=== PATIENT | male | born 1940 | race Caucasian/White ===

== ENCOUNTER → 2016-11-16 | Outpatient (CLI) | payer OTHER ==
[~2016-11-16] MED LIST: ASPEC81 PO; CHOL100010 PO; CLX20 PO; CYAN500T PO; GLC850 PO; ROSU40TA PO; SITA50TA3 PO
[2016-11-16 17:54] LABS: BLOOD UREA NITROGEN 15 mg/dl (7-18); BUN/CREATININE RATIO 13.8 (10-20); CALCIUM 9.2 mg/dl (8.5-10.1); CARBON DIOXIDE 28 mmol/L (21-32); CHLORIDE 104 mmol/L (98-107); GLUCOSE 223 mg/dl (70-99); POTASSIUM 4.7 mmol/L (3.5-5.1); SODIUM 140 mmol/L (136-145)
[2016-11-16 18:05] LABS: RATIO 9.7 mcg/mg (0-30.0)
[2016-11-17 06:32] LABS: ESTIMATED AVERAGE GLUCOSE 177 mg/dl; HA1C FLAG Normal (Normal)
== END | disposition home or self-care (01) ==
LOC: C.LABPBG 15:36
PROVIDERS: ATTEND Nurse Practitioner Family
DX: E11.9 Type 2 diabetes mellitus without complications (principal)

== ENCOUNTER → 2017-05-09 | Outpatient (CLI) | payer OTHER ==
[2017-05-10 07:22] LABS: ESTIMATED AVERAGE GLUCOSE 177 mg/dl; HA1C FLAG Normal (Normal)
== END | disposition home or self-care (01) ==
LOC: C.LABPBG 12:53
PROVIDERS: ATTEND Nurse Practitioner Family
DX: E11.9 Type 2 diabetes mellitus without complications (principal)

== ENCOUNTER → 2017-11-22 | Outpatient (CLI) | payer OTHER ==
[2017-11-22 13:31] LABS: HEMOGLOBIN A1C 7.8 % (4.5-5.6)
== END | disposition home or self-care (01) ==
LOC: C.LABPBG 09:41
PROVIDERS: ATTEND Nurse Practitioner Family
DX: E11.9 Type 2 diabetes mellitus without complications (principal)

== ENCOUNTER → 2018-01-09 | Outpatient (CLI) | payer OTHER ==
--- NOTE | 2018-01-09 15:25 | DIAGNOSTIC IMAGING REPORT ---
LUMBAR SPINE AND PELVIS BONE SCAN WITH SPECT IMAGING HISTORY: Low back pain. TECHNIQUE: 3 hours following the intravenous administration of 26.5 mCi of technetium 99 M MDP, anterior, posterior, and oblique views of the lumbar spine and pelvis were performed. SPECT imaging of the lumbar spine and was also obtained. COMPARISON STUDY: Lumbar spine MRI 01/02/2018. Abdomen and pelvis CT 08/22/2015. FINDINGS: No abnormal radiotracer uptake seen within the pelvis. Mild radiotracer uptake seen along the anterior vertebral bodies of the lower thoracic spine. This correlates to the large anterior osteophytes. There is also radiotracer uptake associated with the large left anterior osteophytes at L1-L2. Small focus of radiotracer uptake seen within the left anterior aspect of the L1 superior endplate. This is nonspecific but could be due to degenerative change. IMPRESSION: 1. Radiotracer uptake associated with the largest left anterior osteophytes at L1-L2 and the small focus of edema within the anterior aspect of the L1 superior endplate. Therefore, this favors degenerative change. 2. No abnormal radiotracer uptake seen within the pelvis. 3. Additional areas of mild radiotracer uptake seen along the anterior aspect of the lower thoracic spine also associated with the anterior osteophytes. Electronically signed by: Ralph Ku M.D. 01/09/2018 3:24 PM Dictated Date/Time: 01/09/2018 3:15 PM
== END | disposition home or self-care (01) ==
LOC: C.NUCL 09:58
PROVIDERS: ATTEND Orthopaedic Surgery
DX: M54.5 Low back pain (principal)

== ENCOUNTER → 2018-01-30 | Day surgery (SDC) | payer OTHER ==
[2018-01-16 10:09] VITALS: Ht 177.8 cm; Wt 104.5 kg
[~2018-01-30] VITALS: Ht 177.8 cm; Wt 104.5 kg
[~2018-01-30] MED LIST changes: +ASPCH81X PO; -ASPEC81 PO; +BUPIVACAINE 0.25% 2.5MG/ML PF 10 ML VIAL ONE; +CHOL1000 PO; -CHOL100010 PO; -CLX20 PO; -CYAN500T PO; -GLC850 PO; +INSU1INJ33 SC; +IOPAMIDOL INJ 61% 15 ML VIAL ONE; +LIDOCAINE HCL 1% MPF 5 ML VIAL ONE; +LOSA1TAB PO; +NVLG SC; -ROSU40TA PO; +SERT25TA PO; -SITA50TA3 PO
--- NOTE | 2018-01-30 14:29 | History & Physical Bridge - [place] ---
H&P Re-Evaluation Bridge Note: I have examined the patient, reviewed the History & Physical and in the interval since the performance of the History & Physical I have noted the following changes of clinical significance: No changes noted
--- NOTE | 2018-01-30 14:46 | [facility] Post Operative Brief Note ---
Immediate Operative Summary Operative Date Jan 30, 2018. Pre-Operative Diagnosis Low back pain Post-Operative Diagnosis Low back pain Procedure(s) Performed Left Sacroiliac Joint Injection Surgeon Dr. Imani Biggs Puppy Sitter Surgeon(s) None Estimated Blood Loss 0 Findings Consistent with Post-Op Diagnosis Specimens NA Drains None Anesthesia Type Local Complication(s) none Disposition Disposition:
[2018-01-30 14:48] VITALS: TEMP 37.2
--- NOTE | 2018-01-30 14:48 | Discharge Instructions ---
Discharge Instructions Date of Service Jan 30, 2018. Visit Reason for Visit: Sacroiliitis Discharge Discharge Diagnosis / Problem: low back pain Discharge Goals Goal(s): Decrease discomfort, Improve function Medications Stopped Medications Name(s): aspirin 81mg daily, last dose 01/25/18 Activity Recommendations Activity Limitations: resume your previous activity Anesthesia . Post Anesthesia Instructions: If you have had General Anesthesia or IV Sedation: * Do not drive today. * Resume driving when surgeon permits. * Do not make important decisions or sign legal documents today. * Call surgeon for: 1. Temperature elevations greater than 101 degrees F. 2. Uncontrollable pain. 3. Excessive bleeding. 4. Persistent nausea and vomiting. 5. Medication intolerance (nausea, vomiting or rash). * For nausea and vomiting use only clear liquids such as: tea, soda, bouillon until nausea subsides, then gradually increase diet as tolerated. * If you have any concerns or questions, call your surgeon's office. If physician is unavailable and it is an emergency, call 911 or go to the nearest emergency room. . Diet Recommendations Recommended Home Diet: resume previous diet Procedures Procedures Performed: Left Sacroiliac Joint Injection Pending Studies Studies pending at discharge: no Medical Emergencies . Who to Call and When: Medical Emergencies: If at any time you feel your situation is an emergency, please call 911 immediately. . Non-Emergent Contact Non-Emergency issues call your: Specialist . . "Provider Documentation" section prepared by Bin Biggs. .
--- NOTE | 2018-01-30 15:11 | OPERATIVE REPORT ---
DATE OF OPERATION: 01/30/2018 PREOPERATIVE DIAGNOSIS: Left sacroiliitis. POSTOPERATIVE DIAGNOSIS: Same. PROCEDURE: Left sacroiliac joint injection under fluoroscopic guidance. INDICATIONS: The patient is a 77-year-old white male who presents with a 3-year history of low back pain. He has had multiple epidural injections that were ineffective. He has pain that he localizes to the lower sacral area on the left side, occasionally radiated into the thigh, but never below the knee and his symptoms were consistent with an SI etiology of his pain. PHYSICAL EXAMINATION: Pleasant male, who has difficulty getting up from a chair, moving localizing pain in the lower lumbosacral area. Nontender to palpation over the facets and muscular area. Tender to palpation over the left SI joint. Positive Yi maneuver. Negative sacral distraction maneuver. CONSENT: Verbal and written consent was obtained from the patient. Risks and benefits were reviewed. Risks include, but are not limited to abscess and allergic reaction. The patient wishes to proceed. DESCRIPTION OF PROCEDURE: The patient was taken back to the special procedures room of the [facility], where he was maintained in a prone position. Backside was cleansed with Betadine x3 and a dry sterile dressing was applied. Fluoroscope was used to identify the left SI joint. Overlying skin was anesthetized with 2.5 mL of lidocaine 1% with a 25-gauge 1-1/2 inch needle. A 25-gauge 3-1/2 inch spinal needle was then directed under fluoroscopic guidance into the SI joint. Isovue-300 contrast 0.25 mL demonstrated intraarticular uptake. He then underwent injection after negative aspiration of 40 mg of Depo-Medrol and 1.5 mL of bupivacaine 0.25%. Injection was well tolerated. DISPOSITION: 1. The patient was taken out into the discharge recovery area, where he will be discharged home once discharge criteria have been met. 2. Follow up in the [facility] office in 4 weeks' time. I attest to the content of the Intraoperative Record and any orders documented therein. Any exception s are noted below.
[2018-01-30 15:12] VITALS: BP 155/84; PULSE 66; O2SAT 99
== END | disposition home or self-care (01) ==
LOC: X.SURG 13:29
PROVIDERS: ATTEND Physical Medicine & Rehabilitation
DX: M46.1 Sacroiliitis, not elsewhere classified (principal); I10 Essential (primary) hypertension; E78.00 Pure hypercholesterolemia, unspecified; Z88.8 Allergy status to other drugs, medicaments and biological substances; Z88.2 Allergy status to sulfonamides; Z79.82 Long term (current) use of aspirin; Z79.899 Other long term (current) drug therapy; Z79.84 Long term (current) use of oral hypoglycemic drugs

== ENCOUNTER → 2018-03-19 | Outpatient (CLI) | payer OTHER ==
[~2018-03-19] MED LIST changes: -BUPIVACAINE 0.25% 2.5MG/ML PF 10 ML VIAL ONE; -IOPAMIDOL INJ 61% 15 ML VIAL ONE; -LIDOCAINE HCL 1% MPF 5 ML VIAL ONE
== END | disposition home or self-care (01) ==
LOC: C.RDSM 11:20
PROVIDERS: ATTEND Family Medicine
DX: M25.552 Pain in left hip (principal)

== ENCOUNTER → 2018-05-29 | Outpatient (CLI) | payer OTHER ==
[2018-05-29 17:21] LABS: BLOOD UREA NITROGEN 18 mg/dl (7-18); CALCIUM 8.8 mg/dl (8.5-10.1); CARBON DIOXIDE 28 mmol/L (21-32); CHOLESTEROL 161 mg/dl (0-200); GLUCOSE 110 mg/dl (70-99); LDL CHOLESTEROL CALCULATED 89 mg/dl; POTASSIUM 4.4 mmol/L (3.5-5.1); SODIUM 137 mmol/L (136-145)
[2018-05-30 05:54] LABS: HEMOGLOBIN A1C 7.4 % (4.5-5.6)
== END | disposition home or self-care (01) ==
LOC: C.LABPBG 12:25
PROVIDERS: ATTEND Nurse Practitioner Family
DX: E11.65 Type 2 diabetes mellitus with hyperglycemia (principal)

== ENCOUNTER 2023-02-09 17:08 | Inpatient (IN) ==
--- NOTE | 2023-02-09 17:13 | ED Triage Note ---
Date of Service February 09, 2023 History of Present Illness This patient was briefly evaluated while in triage. An abbreviated physical exam was performed. This patient is a 82-year-old Male who presents to the ED for evaluation of intermittent confusion, swelling in his leg, fatigue (sleeping 17 hours per d ay). 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 PCP referred to ED for stroke work-up. Symtpoms started last week. Physical Exam VITALS: Vitals are noted on the nurse's note and reviewed by myself. GENERAL: This is an 82 year old male, in no acute distress, nondiaphoretic, well-developed well-nourished. SKIN: No obvious rashes, edema, erythema HEAD: Normocephalic atraumatic. EYES: Conjunctivae without injection, sclerae without icterus. NECK: No JVD. LUNGS: No retractions or accessory muscle use. MUSCULOSKELETAL: Presents in a wheelchair. NEURO: Patient was alert and oriented to person place and time. No focal neurological deficits. Initial orders for labs and / or imaging were placed and patient was placed in the waiting area until a bed is available. Please see further documentation for the full ED course.
[2023-02-09 17:57] LABS: Basophils # (auto) 0.06 K/uL (0-0.2); Basophils % (auto) 0.6 %; Eosinophils # (auto) 0.06 K/uL (0-0.50); Eosinophils % (auto) 0.6 %; Hematocrit (blood only) 38.4 % (42.0-52.0); Hemoglobin 13.3 g/dl (14.0-18.0); Immature Granulocytes # (auto) 0.02 K/uL (0.01-0.20); Immature Granulocytes % (auto) 0.2 %; Lymphocytes # (auto) 1.38 K/uL (1.2-3.4); Lymphocytes % (auto) 13.7 %; Mean Corpuscular Hgb Conc 34.6 g/dL (32.0-36.0); Mean Corpuscular Volume 89.5 fL (80.0-100.0); Mean Platelet Volume 10.7 fL (9.4-12.4); Monocytes # (auto) 0.66 K/uL (0.11-0.59); Monocytes % (auto) 6.5 %; Neutrophils % (auto) 78.4 %; Platelet Count 193 K/uL (130-400); RDW Standard Deviation 42.2 fL (36.4-46.3); Red Blood Count 4.29 M/uL (4.70-6.10); White Blood Count 10.08 K/ul (4.8-10.8)
--- NOTE | 2023-02-09 18:08 | XRay Report ---
XR chest 1V not portable CLINICAL HISTORY: neuro deficit, fatigue COMPARISON STUDY: Chest radiograph December 03, 2022. FINDINGS: Left subclavian pacer is in place. There are median sternotomy wires. There is no pneumotho rax. Trace right pleural effusion is noted. Interstitial thickening and bilateral airspace opacities are greater within the right lung. These have developed since chest radiograph of December 03, 2022. C ardiomegaly is again noted. IMPRESSION: 1. Interval development of multifocal airspace opacities and interstitial thickening, greater within the right lung. The findings favor pneumonia. Asymmetric pulmonary edema could appear similar althoug h is considered less likely. Radiographic follow-up is recommended to ensure resolution. 2. Cardiomegaly. 3. Trace right pleural effusion. ACT 112: Negative or not required by law. Electronically signed by: Ricco Haynes M.D. 02/09/2023 6:07 PM
[2023-02-09 18:14] LABS: Alanine Aminotransferase 61 U/L (7-52); Albumin Globulin Ratio 0.9 (0.9-2); Albumin Level 3.4 gm/dl (3.4-5.0); Alkaline Phosphatase 150 U/L (34-104); Anion Gap 7 (3-11); Aspartate Aminotransferase 39 U/L (13-39); BUN Creatinine Ratio 13.7 (10-20); Bilirubin,Total 1.3 mg/dl (0.2-1.0); Blood Urea Nitrogen 13 mg/dl (6-23); Calcium 9.3 mg/dl (8.6-10.3); Carbon Dioxide 29 mmol/L (21-32); Chloride 94 mmol/L (98-107); Est GFR (African American) 85.5 ml/min; Est GFR (Non-African American) 73.7 ml/min; Globulin 3.8 gm/dl (2.5-4.0); Glucose 163 mg/dl (70-99(Fasting)); Magnesium 1.8 mg/dl (1.7-2.4); Sodium 130 mmol/L (136-145); Total Protein 7.2 gm/dl (6.0-8.3)
[2023-02-09 18:20] LABS: Troponin I High Sensitivity 20.9 pg/ml (0-20)
[2023-02-09 18:25] LABS: INR 1.2 (0.9-1.1); Partial Thromboplastin Ratio 1.3; Partial Thromboplastin Time 34.4 Seconds (21.0-31.0)
--- NOTE | 2023-02-09 19:03 | CT Scan Report ---
HEAD CT NONCONTRAST CT DOSE: 614.27 mGy.cm HISTORY: neuro deficit, weakness, confusion TECHNIQUE: Multiaxial CT images of the head were performed without the use of intravenous contrast. A utomated exposure control was utilized for this study. A dose lowering technique was utilized adheri ng to the principles of ALARA. Comparison: None. Findings: The paranasal sinuses and mastoid air cells are clear. 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 There is no mas s, hematoma, midline shift, or acute infarct identified. Left parietal craniotomy at the high convexi ty with a small focus of underlying encephalomalacia. No calvarial fractures identified. The ventricl es and sulci demonstrate mild age-related involutional changes. Periarticular white matter hypodensit y suggests mild microvascular ischemic change. Impression: 1. No acute intracranial abnormality. 2. Postoperative changes and old infarcts as described above. ACT 112: Negative or not required by law. Electronically signed by: Ralph Ku M.D. 02/09/2023 7:01 PM
--- NOTE | 2023-02-09 19:43 | Emergency Department Note ---
History of Present Illness General Chief complaint: Stroke/CVA Symptoms Stated complaint: REF BY DOC, CONFUSION, HEADACHE, WEAKNESS, Time Seen by Provider: 02/09/23 18:18 History of Present Illness Provider complaint: Weakness 82-year-old male presents emergency department for weakness. Daughter at bedside states that the patient has been getting increasingly weak over the last week. He reports increased leg swelling bilateral lower extremities. Patient reports headache and history of an AVM. Daughter states that the called her PCP who referred them to the emergency department to be evaluated given his constitution of symptoms. No fevers. No falls. No nausea vomiting or paz rrhea. No abdominal pain. Home Medications Medication Instructions Recorded Confirmed Type rosuvastatin 20 mg tablet (Crestor) 20 mg PO QPM 06/20/18 02/09/23 History cholecalciferol (vitamin D3) 25 1,000 unit PO QAM 07/04/18 02/09/23 History mcg (1,000 unit) tablet (Vitamin D3) Contour Test Strips (blood sugar #300 ea 12/28/19 01/09/22 Rx diagnostic) apixaban 5 mg tablet (Eliquis) 5 mg PO BID 02/09/23 02/09/23 History fluoxetine 40 mg capsule 40 mg PO QAM 02/09/23 02/09/23 History furosemide 20 mg tablet 20 mg PO 3XWK 02/09/23 02/09/23 History insulin degludec 100 unit/mL (3 20 unit subcut DAILY 02/09/23 02/09/23 History mL) subcutaneous pen (Tresiba FlexTouch U-100 insulin) metoprolol succinate 25 mg 25 mg PO QPM 02/09/23 02/09/23 History tablet,extended release 24 hr multivitamin 1 tab PO QAM 02/09/23 02/09/23 History semaglutide 0.25 mg or 0.5 mg (2 0.5 mg subcut WK 02/09/23 02/09/23 History mg/3 mL) subcutaneous pen injector (Ozempic) Allergies Allergy/AdvReac Type Severity Reaction Status Date / Time amoxicillin AdvReac Unknown SICK IN Verified 02/09/23 21:25 STOMACH clavulanic acid AdvReac Unknown SICK IN Verified 02/09/23 21:25 STOMACH clopidogrel AdvReac Unknown SICK IN Verified 02/09/23 21:25 STOMACH Past Med/Surg History Medical History Basal cell carcinoma "left ear, had surgery" CAD (coronary artery disease) "BMS to OM in 2002 CABG x1 in 2009 w/ aortic valve replacement" Cardiac murmur H/O severe s/p AVR 2009 Diabetes Dyslipidemia GERD (gastroesophageal reflux disease) History of anesthesia reaction WITH VALVE REPLACEMENT SLOW TO WAKE UP History of arteriovenous malformation (AVM) History of gout History of kidney stones History of myocardial infarction 2009 HTN (hypertension) Osteoarthritis Pacemaker OCT 2018 "PASSED OUT" - / FOLLOWS DR HAYWOOD - LAST CHECK ? Seizures 2011 - AFTER AVM SURGERY - NO SEIZURES Sleep apnea DOES NOT USE MACHINE Surgical History H/O aortic valve replacement H/O craniotomy "for AVM" 2011 History of heart valve replacement 2009 [facility] - AORTIC VALVE REPLACEMENT - PT REPORTS STENT WAS REMOVED DURING VALVE REPLACEMENT SURGERY History of hip surgery LEFT " PRP" History of lumbar surgery "nucleoplasty L4-L5" History of sinus surgery History of tonsillectomy and adenoidectomy Hx of cardiac cath 2009 [facility] ..DC..x1 STENT Hx of colonoscopy Hx of repair of rotator cuff RIGHT AND LEFT Hx of tonsillectomy Hx of tooth extraction Pacemaker S/P laparoscopic cholecystectomy (07/15/19) Laparoscopic Cholecystectomy with Cholangiogram Dr. Sutherland 07-15-19 Family History Sister Diabetes Mother Heart disease Hypertension Father Heart disease Social History Smoking Status: Unknown if ever smoked Cigarettes Per Day: 1ppd for 20 yrs; Second Hand Exposure: No; Hx Alcohol Use: Yes Alcohol type: wine and hard liquor Hx Substance Use: No Preferred Language: Hebrew Communication Ability: Effective Communication Ability Comment: NO HEARING AIDES. KNIK Visual Impairment: No Limitations Mechanical Technologist Required: No Beliefs That Will Affect Care: None Current Living Situation: Spouse current occupational status: retired Feels Safe at Home: Yes Assistive Devices: Cane, Glasses and Walker Physical Exam Vital Signs Vital Signs - 24 hr 02/09/23 17:10 02/09/23 19:08 02/09/23 19:11 Temperature 36.7 C Temperature Source Temporal Artery Scan Pulse Rate 69 Pulse Rate [Apical] 70 Pulse Rhythm [Apical] Regular Pulse Strength [Apical] Normal Respiratory Rate 18 24 Respiratory Effort / Characteristics Non-Labored Spontaneous Non-Labored Spontaneous Respiratory Depth Normal Normal Respiratory Pattern Regular Regular Blood Pressure 148/77 H Blood Pressure [Right Arm] 140/58 L Blood Pressure Mean 100 Blood Pressure Mean [Right Arm] 85 Blood Pressure Position [Right Arm] Sitting Pulse Oximetry 92 88 L 88 L Oxygen Delivery Method Room Air Room Air Nasal Cannula Oxygen Flow Rate 2 Sepsis Recent Fever Within 48 Hours No Sepsis New/Unexplained Change in Mental Status No Sepsis Action Taken by Nursing No Action Required Pulse Oximetry Post Tiitration 93 02/09/23 20:50 02/09/23 19:13 Temperature Temperature Source Pulse Rate 70 Pulse Rate [Apical] 75 Pulse Rhythm [Apical] Regular Pulse Strength [Apical] Normal Respiratory Rate 21 Respiratory Effort / Characteristics Non-Labored Spontaneous Respiratory Depth Normal Respiratory Pattern Regular Blood Pressure Blood Pressure [Right Arm] 115/69 Blood Pressure Mean Blood Pressure Mean [Right Arm] 84 Blood Pressure Position [Right Arm] Sitting Pulse Oximetry 95 Oxygen Delivery Method Nasal Cannula Oxygen Flow Rate 2 Sepsis Recent Fever Within 48 Hours Sepsis New/Unexplained Change in Mental Status Sepsis Action Taken by Nursing Pulse Oximetry Post Tiitration Physical Exam GENERAL: He is oriented to person, place, and time. He appears well-developed and well-nourished. He does not appear distressed. HENT: Exam performed. - Head: Normocephalic and atraumatic. - Right Ear: External ear normal. No mastoid erythema - Left Ear: External ear normal. No mastoid erythema EYES: Conjunctivae and EOM are normal. Right eye exhibits no discharge. Left eye exhibits no discharge. No scleral icterus. NECK: Normal range of motion. Neck supple. No JVD present. No spinous process tenderness present. CV: Normal rate, regular rhythm, heart murmur and intact distal pulses. 3+ pitting edema of the bilateral lower extremities. Palpable radial pulses bue. PULM/CHEST: Rhonchi bilaterally and inspiratory rales bilaterally. ABD: The abdomen is soft. Bowel sounds are normal. He has no distension. No mass is present. There is no tenderness. There is no rebound, no guarding, no Nicole's sign and no tenderness at McBurney's point. Rovsig negative. MUSC/SKEL: Normal range of motion. There is no tenderness or deformity. LYMPH: No cervical adenopathy. NEURO: Motor and sensation grossly intact. SKIN: Skin is warm and dry. He is not diaphoretic. PSYCH: He has a normal mood and affect. Behavior is normal. Judgment and thought content normal. Course Course 1817: The patient was evaluated in room C11. A complete history and physical exam was performed Administered Medications Insulin Aspart (Insulin Aspart Per Unit Charge) 0 units SC Q6 GUILLE Stop: 03/12/23 00:00 Last Admin: 02/10/23 00:12 Dose: Not Given Documented By: ENRIQUETA Miscellaneous (Patient's Height &/Or Weight Needed) 1 each N/A Q30M GIULLE Stop: 02/10/23 01:00 Last Admin: 02/10/23 00:12 Dose: Not Given Documented By: Admin: 02/10/23 00:11 Dose: Not Given Documented By: Admin: 02/10/23 00:11 Dose: Not Given Documented By: Admin: 02/09/23 23:24 Dose: 1 each Documented By: ENRIQUETA Discontinued Medications Azithromycin (Azithromycin 250 Mg Tab) 500 mg PO NOW ONE Stop: 02/09/23 20:32 Last Admin: 02/09/23 21:25 Dose: Not Given Documented By: JACE Furosemide (Furosemide 40 Mg/4 Ml Vial) 40 mg IV ONE ONE Stop: 02/09/23 20:32 Last Admin: 02/09/23 20:50 Dose: 40 mg Documented By: JACE Ceftriaxone Sodium 1,000 mg/ (Dextrose) 50 mls @ 100 mls/hr IV NOW STA Stop: 02/09/23 21:00 Last Infusion: 02/09/23 21:24 Dose: 0 mls/hr Documented By: Admin: 02/09/23 20:50 Dose: 100 mls/hr Documented By: JACE Azithromycin 500 mg/ Dextrose 255 mls @ 125 mls/hr IV ONE ONE Stop: 02/09/23 23:32 Last Admin: 02/09/23 22:11 Dose: 125 mls/hr Documented By: JACE Critical Care Time Critical Care Time: Yes Total Critical Care Time: 38 I have personally spent greater than 38 minutes of critical care time in the direct management of this patient. This includes bedside care, interpretation of diagnostic studies, and testing, discussion with consultants, patient, and family members, and other required patient management activities. This 38 minutes is in excess of all separately billable procedures. Medical Decision Making Laboratory Data Attestation: I reviewed the patient's lab results. 02/09/23 17:25 02/09/23 17:25 Lab Results 02/09/23 02/09/23 02/09/23 Range/Units 17:25 17:25 17:25 WBC 10.08 (4.8-10.8) K/ul RBC 4.29 L (4.70-6.10) M/uL Hgb 13.3 L (14.0-18.0) g/dl Hct 38.4 L (42.0-52.0) % MCV 89.5 (80.0-100.0) fL MCH 31.0 (25.0-34.0) pg MCHC 34.6 (32.0-36.0) g/dL RDW Std Deviation 42.2 (36.4-46.3) fL RDW Coeff of Lencho 13.0 (11.5-14.5) % Plt Count 193 (130-400) K/uL MPV 10.7 (9.4-12.4) fL Immature Gran % (Auto) 0.2 % Neut % (Auto) 78.4 % Lymph % (Auto) 13.7 % Dewey % (Auto) 6.5 % Eos % (Auto) 0.6 % Baso % (Auto) 0.6 % Neut # (Auto) 7.90 H (1.40-6.50) K/uL Lymph # (Auto) 1.38 (1.2-3.4) K/uL Dewey # (Auto) 0.66 H (0.11-0.59) K/uL Eos # (Auto) 0.06 (0-0.50) K/uL Baso # (Auto) 0.06 (0-0.2) K/uL Immature Gran # (Auto) 0.02 (0.01-0.20) K/uL PT 13.0 H (9.0-12.0) Seconds INR 1.2 H (0.9-1.1) APTT 34.4 H (21.0-31.0) Seconds PTT Ratio 1.3 VBG pH (7.36-7.41) VBG pCO2 (38-50) mmHg VBG pO2 mmHg VBG HCO3 mmol/L VBG O2 Saturation % VBG Base Excess mEq/L Sodium 130 L (136-145) mmol/L Potassium 4.0 (3.5-5.1) mmol/L Chloride 94 L (98-107) mmol/L Carbon Dioxide 29 (21-32) mmol/L Anion Gap 7 (3-11) BUN 13 (6-23) mg/dl Creatinine 0.95 (0.6-1.4) mg/dl Est Cr Clr Drug Dosing Not Reportable Est GFR ( Amer) 85.5 ml/min Est GFR (Non-Af Amer) 73.7 ml/min BUN/Creatinine Ratio 13.7 (10-20) Glucose 163 H (70-99(Fasting)) mg/dl Lactate (0.4-2.0) mmol/L Calcium 9.3 (8.6-10.3) mg/dl Magnesium 1.8 (1.7-2.4) mg/dl Total Bilirubin 1.3 H (0.2-1.0) mg/dl AST 39 (13-39) U/L ALT 61 H (7-52) U/L Alkaline Phosphatase 150 H (34-104) U/L Ammonia (18-72) umol/L Troponin I High Sens 20.9 H (0-20) pg/ml B-Natriuretic Peptide (0-100) pg/ml Total Protein 7.2 (6.0-8.3) gm/dl Albumin 3.4 (3.4-5.0) gm/dl Globulin 3.8 (2.5-4.0) gm/dl Albumin/Globulin Ratio 0.9 (0.9-2) SARS-CoV-2, RNA, NAAT (NEGATIVE) Blood Type Antibody Screen 02/09/23 02/09/23 02/09/23 Range/Units 17:26 19:10 19:55 WBC (4.8-10.8) K/ul RBC (4.70-6.10) M/uL Hgb (14.0-18.0) g/dl Hct (42.0-52.0) % MCV (80.0-100.0) fL MCH (25.0-34.0) pg MCHC (32.0-36.0) g/dL RDW Std Deviation (36.4-46.3) fL RDW Coeff of Lencho (11.5-14.5) % Plt Count (130-400) K/uL MPV (9.4-12.4) fL Immature Gran % (Auto) % Neut % (Auto) % Lymph % (Auto) % Dewey % (Auto) % Eos % (Auto) % Baso % (Auto) % Neut # (Auto) (1.40-6.50) K/uL Lymph # (Auto) (1.2-3.4) K/uL Dewey # (Auto) (0.11-0.59) K/uL Eos # (Auto) (0-0.50) K/uL Baso # (Auto) (0-0.2) K/uL Immature Gran # (Auto) (0.01-0.20) K/uL PT (9.0-12.0) Seconds INR (0.9-1.1) APTT (21.0-31.0) Seconds PTT Ratio VBG pH (7.36-7.41) VBG pCO2 (38-50) mmHg VBG pO2 mmHg VBG HCO3 mmol/L VBG O2 Saturation % VBG Base Excess mEq/L Sodium (136-145) mmol/L Potassium (3.5-5.1) mmol/L Chloride (98-107) mmol/L Carbon Dioxide (21-32) mmol/L Anion Gap (3-11) BUN (6-23) mg/dl Creatinine (0.6-1.4) mg/dl Est Cr Clr Drug Dosing Est GFR ( Amer) ml/min Est GFR (Non-Af Amer) ml/min BUN/Creatinine Ratio (10-20) Glucose (70-99(Fasting)) mg/dl Lactate 1.1 (0.4-2.0) mmol/L Calcium (8.6-10.3) mg/dl Magnesium (1.7-2.4) mg/dl Total Bilirubin (0.2-1.0) mg/dl AST (13-39) U/L ALT (7-52) U/L Alkaline Phosphatase (34-104) U/L Ammonia (18-72) umol/L Troponin I High Sens (0-20) pg/ml B-Natriuretic Peptide (0-100) pg/ml Total Protein (6.0-8.3) gm/dl Albumin (3.4-5.0) gm/dl Globulin (2.5-4.0) gm/dl Albumin/Globulin Ratio (0.9-2) SARS-CoV-2, RNA, NAAT NEGATIVE (NEGATIVE) Blood Type A Positive Antibody Screen NEGATIVE 02/09/23 02/09/23 02/09/23 Range/Units 19:55 19:55 19:55 WBC (4.8-10.8) K/ul RBC (4.70-6.10) M/uL Hgb (14.0-18.0) g/dl Hct (42.0-52.0) % MCV (80.0-100.0) fL MCH (25.0-34.0) pg MCHC (32.0-36.0) g/dL RDW Std Deviation (36.4-46.3) fL RDW Coeff of Lencho (11.5-14.5) % Plt Count (130-400) K/uL MPV (9.4-12.4) fL Immature Gran % (Auto) % Neut % (Auto) % Lymph % (Auto) % Dewey % (Auto) % Eos % (Auto) % Baso % (Auto) % Neut # (Auto) (1.40-6.50) K/uL Lymph # (Auto) (1.2-3.4) K/uL Dewey # (Auto) (0.11-0.59) K/uL Eos # (Auto) (0-0.50) K/uL Baso # (Auto) (0-0.2) K/uL Immature Gran # (Auto) (0.01-0.20) K/uL PT (9.0-12.0) Seconds INR (0.9-1.1) APTT (21.0-31.0) Seconds PTT Ratio VBG pH 7.42 H (7.36-7.41) VBG pCO2 50 (38-50) mmHg VBG pO2 25 mmHg VBG HCO3 32 mmol/L VBG O2 Saturation < 60.0 % VBG Base Excess 6.6 mEq/L Sodium (136-145) mmol/L Potassium (3.5-5.1) mmol/L Chloride (98-107) mmol/L Carbon Dioxide (21-32) mmol/L Anion Gap (3-11) BUN (6-23) mg/dl Creatinine (0.6-1.4) mg/dl Est Cr Clr Drug Dosing Est GFR ( Amer) ml/min Est GFR (Non-Af Amer) ml/min BUN/Creatinine Ratio (10-20) Glucose (70-99(Fasting)) mg/dl Lactate (0.4-2.0) mmol/L Calcium (8.6-10.3) mg/dl Magnesium (1.7-2.4) mg/dl Total Bilirubin (0.2-1.0) mg/dl AST (13-39) U/L ALT (7-52) U/L Alkaline Phosphatase (34-104) U/L Ammonia 32.0 (18-72) umol/L Troponin I High Sens (0-20) pg/ml B-Natriuretic Peptide 147 H (0-100) pg/ml Total Protein (6.0-8.3) gm/dl Albumin (3.4-5.0) gm/dl Globulin (2.5-4.0) gm/dl Albumin/Globulin Ratio (0.9-2) SARS-CoV-2, RNA, NAAT (NEGATIVE) Blood Type Antibody Screen Imaging Data Attestation: I personally reviewed and interpreted this imaging study as kenzie joseph: My Impression: CT head: No ICH Radiologist's Impression: Chest X-Ray 02/09/23 17:13 XR chest 1V not portable CLINICAL HISTORY: neuro deficit, fatigue COMPARISON STUDY: Chest radiograph December 03, 2022. FINDINGS: Left subclavian pacer is in place. There are median sternotomy wires. There is no pneumothorax. Trace right pleural effusion is noted. Interstitial thickening and bilateral airspace opacities are greater within the right lung. These have developed since chest radiograph of December 03, 2022. Cardiomegaly is again noted. IMPRESSION: 1. Interval development of multifocal airspace opacities and interstitial thickening, greater within the right lung. The findings favor pneumonia. Asymmetric pulmonary edema could appear similar although is considered less likely. Radiographic follow-up is recommended to ensure resolution. 2. Cardiomegaly. 3. Trace right pleural effusion. ACT 112: Negative or not required by law. Electronically signed by: Ricco Haynes M.D. 02/09/2023 6:[address] 02/09/23 17:[address] DOSE: 614.27 mGy.cm HISTORY: neuro deficit, weakness, confusion TECHNIQUE: Multiaxial CT images of the head were performed without the use of intravenous contrast. Automated exposure control was utilized for this study. A dose lowering technique was utilized adhering to the principles of ALARA. Comparison: None. Findings: The paranasal sinuses and mastoid air cells are clear. 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 There is no mass, hematoma, midline shift, or acute infarct identified. Left parietal craniotomy at the high convexity with a small focus of underlying encephalomalacia. No calvarial fractures identified. The ventricles and sulci demonstrate mild age-related involutional changes. Periarticular white matter hypodensity suggests mild microvascular ischemic c hange. Impression: 1. No acute intracranial abnormality. 2. Postoperative changes and old infarcts as described above. ACT 112: Negative or not required by law. Electronically signed by: Ralph Ku M.D. 02/09/2023 7:01 PM MDM Narrative Cardiac monitoring: An order was placed for continuous cardiac monitoring. The monitor shows a rate of 70 with paced rhythm interpreted by me Patient became hypoxic on room air. Supplemental oxygen was applied via nasal cannula which improved the patient's oxygen saturation. Labs are within normal limits normal white blood cell count normal hemoglobin level. VBG is within normal limits. Sodium is 130. Troponin is very slightly elevated at 20.9 BNP elevated at 147. Chest x-ray shows cardiomegaly and cephalization versus infiltrates. Patient will be started on antibiotics Rocephin and azithromycin. Lasix ordered for the patient. Dr. Taylor admit the patient. Impression & Plan Hypoxia, Pneumonia, CHF exacerbation Discharge Plan Visit Data Chief Complaint: Stroke/CVA Symptoms Stated Complaint: REF BY DOC, CONFUSION, HEADACHE, WEAKNESS, ED Provider: John Combs Discharge Problem: Hypoxia, Pneumonia, CHF exacerbation Patient Disposition: Admitted As Inpatient Discharge Instructions Interventions: ED Discharge Assessment Last Done: 02/09/23 22:38
[2023-02-09 20:19] LABS: Base Excess VBG 6.6 mEq/L; HCO3 VBG 32 mmol/L; Oxygen Saturation VBG < 60.0 %; PCO2 VBG 50 mmHg (38-50); PO2 VBG 25 mmHg; pH VBG 7.42 (7.36-7.41)
[2023-02-09] MEDS ORDERED: cefTRIAXone SODIUM 1,000 MG in DEXTROSE 5% AD-VAN 50 ML IV STA (20:31)
[2023-02-09] MEDS ORDERED: FUROSEMIDE 40 MG/4 ML VIAL IV ONE (20:31)
[2023-02-09] MEDS: AZITHROMYCIN 250 MG TAB PO ONE ×2 (20:50→21:25)
[2023-02-09] MEDS ORDERED: AZITHROMYCIN 500 MG in DEXTROSE 5% 250 ML IV ONE (21:30)
--- NOTE | 2023-02-09 22:20 | History & Physical Report ---
Date of Service February 09, 2023 Assessment & Plan (1) Acute respiratory failure with hypoxia: (2) CHF exacerbation: (3) Pneumonia: (4) Diabetes mellitus with insulin therapy: (5) Arthritis: (6) CAD (coronary artery disease): (7) Dyslipidemia: (8) GERD (gastroesophageal reflux disease): (9) Seizures: (10) H/O aortic valve replacement: Plan Acute respiratory failure with hypoxia/pneumonia/CHF exacerbation- Continue nasal cannula oxygen, titrate to keep pulse ox 92-94% Pneumonia- Question of possibility of aspiration He received ceftriaxone 1 g IV from the ED Cancel or azithromycin from the ED Admitted on cefepime 2 g IV every 12 hours and azithromycin 500 mg IV daily Albuterol HFA 2 puffs 4 times daily as needed May need a speech therapy evaluation, as he has not had any evaluation in the past CHF exacerbation/elevated troponin/CAD/hypertension/status post AVR- Given furosemide 40 mg IV in the ED, and will continue every morning Continue apixaban 5 mg p.o. twice daily, metoprolol succinate 25 mg every evening Follow serial BMP and magnesium levels He reportedly had a recent echocardiogram last week, that they were told was normal at [facility] Diabetes mellitus- Hold semaglutide and insulin degludec Placed on Accu-Cheks with NovoLog SSI Depression- Continue fluoxetine Cerebrovascular disease- CT head with old infarcts noted, with right frontotemporal old MCA distribution infarct with encephalomalacia Left parietal craniotomy with encephalomalacia Patient lives with his and daughter on [facility] in [place] History of Present Illness Chief Complaint: The patient is referred to the emergency department by outpatient physician due to increased confusion, headache, generalized weakness, increased bilateral lower extremity swelling, frontal headache, and worsening shortness of breath over the past 1 to 2 weeks Primary Care Provider: KENNEDI Dos Santos The patient is an 82-year-old male with a past medical history including gout, diabetes mellitus on insulin, CKD, hypertension, CAD, CHF, depression, hypertension, hyperlipidemia, cerebrovascular disease with history of CVA, s tatus post left parietal craniotomy, history of AVMs, history of kidney stones, VT in 2010, seizure disorder, sleep apnea status post AVR and status post pacemaker. The patient presents to the emergency department with symptoms as noted above, at the referral of his PCP and with his family, and daughter in attendance for support Allergies Allergy/AdvReac Type Severity Reaction Status Date / Time amoxicillin AdvReac Unknown SICK IN Verified 02/09/23 21:25 STOMACH clavulanic acid AdvReac Unknown SICK IN Verified 02/09/23 21:25 STOMACH clopidogrel AdvReac Unknown SICK IN Verified 02/09/23 21:25 STOMACH Home Medications Medication Instructions Recorded Confirmed Type rosuvastatin 20 mg tablet (Crestor) 20 mg PO QPM 06/20/18 02/09/23 History cholecalciferol (vitamin D3) 25 1,000 unit PO QAM 07/04/18 02/09/23 History mcg (1,000 unit) tablet (Vitamin D3) Contour Test Strips (blood sugar #300 ea 12/28/19 01/09/22 Rx diagnostic) apixaban 5 mg tablet (Eliquis) 5 mg PO BID 02/09/23 02/09/23 History fluoxetine 40 mg capsule 40 mg PO QAM 02/09/23 02/09/23 History furosemide 20 mg tablet 20 mg PO 3XWK 02/09/23 02/09/23 History insulin degludec 100 unit/mL (3 20 unit subcut DAILY 02/09/23 02/09/23 History mL) subcutaneous pen (Tresiba FlexTouch U-100 insulin) metoprolol succinate 25 mg 25 mg PO QPM 02/09/23 02/09/23 History tablet,extended release 24 hr multivitamin 1 tab PO QAM 02/09/23 02/09/23 History semaglutide 0.25 mg or 0.5 mg (2 0.5 mg subcut WK 02/09/23 02/09/23 History mg/3 mL) subcutaneous pen injector (Ozempic) Past Med/Surg History Medical History (Updated 02/10/23 @ 01:13 by Lincoln Castro MD) Basal cell carcinoma "left ear, had surgery" CAD (coronary artery disease) "BMS to OM in 2002 CABG x1 in 2009 w/ aortic valve replacement" Cardiac murmur H/O severe s/p AVR 2009 Diabetes Dyslipidemia GERD (gastroesophageal reflux disease) History of anesthesia reaction WITH VALVE REPLACEMENT SLOW TO WAKE UP History of arteriovenous malformation (AVM) History of gout History of kidney stones History of myocardial infarction 2009 HTN (hypertension) Osteoarthritis Pacemaker OCT 2018 "PASSED OUT" - / FOLLOWS DR HAYWOOD - LAST CHECK ? Seizures 2012 - AFTER AVM SURGERY - NO SEIZURES Sleep apnea DOES NOT USE MACHINE Surgical History (Updated 02/10/23 @ 01:13 by Lincoln Castro MD) H/O aortic valve replacement H/O craniotomy "for AVM" 2011 History of heart valve replacement 2009 [facility] - AORTIC VALVE REPLACEMENT - PT REPORTS STENT WAS REMOVED DURING VALVE REPLACEMENT SURGERY History of hip surgery LEFT " PRP" History of lumbar surgery "nucleoplasty L4-L5" History of sinus surgery History of tonsillectomy and adenoidectomy Hx of cardiac cath 2009 [facility] ..VT..x1 STENT Hx of colonoscopy Hx of repair of rotator cuff RIGHT AND LEFT Hx of tonsillectomy Hx of tooth extraction Pacemaker S/P laparoscopic cholecystectomy (07/15/19) Laparoscopic Cholecystectomy with Cholangiogram Dr. Sutherland 07-15-19 Family History Sister Diabetes Mother Heart disease Hypertension Father Heart disease Social History Smoking Status: Unknown if ever smoked Cigarettes Per Day: 1ppd for 20 yrs; Second Hand Exposure: No; Hx Alcohol Use: Yes Alcohol type: wine and hard liquor Hx Substance Use: No Preferred Language: Swedish Communication Ability: Effective Communication Ability Comment: NO HEARING AIDES. SITKA Visual Impairment: No Limitations Certified Lactation Educator Required: No Beliefs That Will Affect Care: None Current Living Situation: Spouse current occupational status: retired Feels Safe at Home: Yes Assistive Devices: Cane, Glasses and Walker Review of Systems Review of Systems: The patient's daughter and somewhat his , relate most of his symptoms, HPI and ROS. Principal concerns are that of increasing lower extremity edema, worsening shortness of breath and dyspnea on exertion, with increased confusion over the past few weeks, they can seem to come on relatively suddenly. The patient does report that he feels significantly better since the nasal cannula oxygen has been placed Physical Exam Physical Exam: The patient is awake, alert and oriented 3, well developed and well nourished, normocephalic and atraumatic, lying in bed and in no acute distress. HEENT--PERRL, EOMI, mucous membranes and oropharynx dry. Neck--supple. No JVD. No bruits. Thyroid normal, trachea midline, no adenopathy. Heart--normal S1 and S2. No murmurs, rubs or gallops. Lungs--crackles at the bases bilaterally. No respiratory distress, no accessory muscle use. Abdomen--normal bowel sounds and soft. Nontender. Nondistended, no hernias or masses, no organomegaly. Extremities--2+ bilateral pretibial pitting edema Dermatologic--normal skin turgor, normal color, no abnormal lymph nodes, no rash. Neurologic--cranial nerves II through XII grossly intact. Rheumatologic--normal range of motion. Psychiatric--normal affect. Results & Data Results & Data Vital Signs (Past 12 Hours) Vital Signs Temp Pulse Pulse Resp BP BP Pulse Ox 02/09/23 22:00 70 22 140/83 97 02/09/23 20:50 75 21 115/69 95 02/09/23 19:11 88 L 02/09/23 19:08 70 24 140/58 L 88 L 02/09/23 17:10 36.7 C 69 18 148/77 H 92 O2 Del Method O2 Flow Rate 02/09/23 22:00 Nasal Cannula 2 02/09/23 20:50 Nasal Cannula 2 02/09/23 19:11 Nasal Cannula 2 02/09/23 19:08 Room Air 02/09/23 17:10 Room Air Laboratory Results Laboratory Results WBC 10.08 K/ul (4.8-10.8) 02/09/23 17:25 RBC 4.29 M/uL (4.70-6.10) L 02/09/23 17:25 Hgb 13.3 g/dl (14.0-18.0) L 02/09/23 17:25 Hct 38.4 % (42.0-52.0) L 02/09/23 17:25 MCV 89.5 fL (80.0-100.0) 02/09/23 17:25 MCH 31.0 pg (25.0-34.0) 02/09/23 17:25 MCHC 34.6 g/dL (32.0-36.0) 02/09/23 17:25 RDW Std Deviation 42.2 fL (36.4-46.3) 02/09/23 17:25 RDW Coeff of Lencho 13.0 % (11.5-14.5) 02/09/23 17:25 Plt Count 193 K/uL (130-400) 02/09/23 17:25 MPV 10.7 fL (9.4-12.4) 02/09/23 17:25 Immature Gran % (Auto) 0.2 % 02/09/23 17:25 Neut % (Auto) 78.4 % 02/09/23 17:25 Lymph % (Auto) 13.7 % 02/09/23 17:25 [place] % (Auto) 6.5 % 02/09/23 17:25 Eos % (Auto) 0.6 % 02/09/23 17:25 Baso % (Auto) 0.6 % 02/09/23 17:25 Neut # (Auto) 7.90 K/uL (1.40-6.50) H 02/09/23 17:25 Lymph # (Auto) 1.38 K/uL (1.2-3.4) 02/09/23 17:25 [place] # (Auto) 0.66 K/uL (0.11-0.59) H 02/09/23 17:25 Eos # (Auto) 0.06 K/uL (0-0.50) 02/09/23 17:25 Baso # (Auto) 0.06 K/uL (0-0.2) 02/09/23 17:25 Immature Gran # (Auto) 0.02 K/uL (0.01-0.20) 02/09/23 17:25 PT 13.0 Seconds (9.0-12.0) H 02/09/23 17:25 INR 1.2 (0.9-1.1) H 02/09/23 17:25 APTT 34.4 Seconds (21.0-31.0) H 02/09/23 17:25 PTT Ratio 1.3 02/09/23 17:25 VBG pH 7.42 (7.36-7.41) H 02/09/23 19:55 VBG pCO2 50 mmHg (38-50) 02/09/23 19:55 VBG pO2 25 mmHg 02/09/23 19:55 VBG HCO3 32 mmol/L 02/09/23 19:55 VBG O2 Saturation < 60.0 % 02/09/23 19:55 VBG Base Excess 6.6 mEq/L 02/09/23 19:55 Sodium 130 mmol/L (136-145) L 02/09/23 17:25 Potassium 4.0 mmol/L (3.5-5.1) 02/09/23 17:25 Chloride 94 mmol/L (98-107) L 02/09/23 17:25 Carbon Dioxide 29 mmol/L (21-32) 02/09/23 17:25 Anion Gap 7 (3-11) 02/09/23 17:25 BUN 13 mg/dl (6-23) 02/09/23 17:25 Creatinine 0.95 mg/dl (0.6-1.4) 02/09/23 17:25 Est Cr Clr Drug Dosing Not Reportable 02/09/23 17:25 Est GFR ( Amer) 85.5 ml/min 02/09/23 17:25 Est GFR (Non-Af Amer) 73.7 ml/min 02/09/23 17:25 BUN/Creatinine Ratio 13.7 (10-20) 02/09/23 17:25 Glucose 163 mg/dl (70-99(Fasting)) H 02/09/23 17:25 POC Glucose 145 mg/dl (70-99) H 02/09/23 22:52 Lactate 1.1 mmol/L (0.4-2.0) 02/09/23 19:55 Calcium 9.3 mg/dl (8.6-10.3) 02/09/23 17:25 Magnesium 1.8 mg/dl (1.7-2.4) 02/09/23 17:25 Total Bilirubin 1.3 mg/dl (0.2-1.0) H 02/09/23 17:25 AST 39 U/L (13-39) 02/09/23 17:25 ALT 61 U/L (7-52) H 02/09/23 17:25 Alkaline Phosphatase 150 U/L (34-104) H 02/09/23 17:25 Ammonia 32.0 umol/L (18-72) 02/09/23 19:55 Troponin I High Sens 17.9 pg/ml (0-20) 02/09/23 23:07 B-Natriuretic Peptide 147 pg/ml (0-100) H 02/09/23 19:55 Total Protein 7.2 gm/dl (6.0-8.3) 02/09/23 17:25 Albumin 3.4 gm/dl (3.4-5.0) 02/09/23 17:25 Globulin 3.8 gm/dl (2.5-4.0) 02/09/23 17:25 Albumin/Globulin Ratio 0.9 (0.9-2) 02/09/23 17:25 SARS-CoV-2, RNA, NAAT NEGATIVE (NEGATIVE) 02/09/23 19:10 Blood Type A Positive 02/09/23 17:26 Antibody Screen NEGATIVE 02/09/23 17:26 Impressions Chest X-Ray 02/09/23 17:13 XR chest 1V not portable CLINICAL HISTORY: neuro deficit, fatigue COMPARISON STUDY: Chest radiograph December 03, 2022. FINDINGS: Left subclavian pacer is in place. There are median sternotomy wires. There is no pneumothorax. Trace right pleural effusion is noted. Interstitial thickening and bilateral airspace opacities are greater within the right lung. These have developed since chest radiograph of December 03, 2022. Cardiomegaly is again noted. IMPRESSION: 1. Interval development of multifocal airspace opacities and interstitial thickening, greater within the right lung. The findings favor pneumonia. Asymmetric pulmonary edema could appear similar although is considered less likely. Radiographic follow-up is recommended to ensure resolution. 2. Cardiomegaly. 3. Trace right pleural effusion. ACT 112: Negative or not required by law. Electronically signed by: Ricco Haynes M.D. 02/09/2023 6:[address] 02/09/23 17:[address] DOSE: 614.27 mGy.cm HISTORY: neuro deficit, weakness, confusion TECHNIQUE: Multiaxial CT images of the head were performed without the use of intravenous contrast. Automated exposure control was utilized for this study. A dose lowering technique was utilized adhering to the principles of ALARA. Comparison: None. Findings: The paranasal sinuses and mastoid air cells are clear. 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 There is no mass, hematoma, midline shift, or acute infarct identified. Left parietal craniotomy at the high convexity with a small focus of underlying encephalomalacia. No calvarial fractures identified. The ventricles and sulci demonstrate mild age-related involutional changes. Periarticular white matter hypodensity suggests mild microvascular ischemic change. Impression: 1. No acute intracranial abnormality. 2. Postoperative changes and old infarcts as described above. ACT 112: Negative or not required by law. Electronically signed by: Ralph Ku M.D. 02/09/2023 7:01 PM Code Status & VTE Plan Code Status Full code, as discussed with patient and family VTE Prophylaxis Plan VTE Prophylaxis will be ordered: Yes PG Care Time/CCT Total # of Minutes Spent Total Time Spent with Patient: Total time spent is greater than 50% in coordination of care (as documented) at patient's floor/unit and/or counseling patient: Coding Level of Care Code 84099 INT INP/OBS CARE 375MIN Diagnoses Acute respiratory failure with hypoxia J96.01 CHF exacerbation I50.9 Heart failure type: unspecified Pneumonia J18.9 Laterality: unspecified laterality Lung location: unspecified part of lung Pneumonia type: due to unspecified organism Diabetes mellitus with insulin therapy E11.9; Z79.4 Arthritis M19.90 CAD (coronary artery disease) I25.10 Dyslipidemia E78.5 GERD (gastroesophageal reflux disease) K21.9 Seizures R56.9 H/O aortic valve replacement Z95.2 (2) CHF exacerbation Heart failure type: unspecified Qualified Code(s): I50.9 - Heart failure, unspecified (3) Pneumonia Laterality: unspecified laterality Lung location: unspecified part of lung Pneumonia type: due to unspecified organism Qualified Code(s): J18.9 - Pneumonia, unspecified organism
[2023-02-09] MEDS ORDERED: GLUCAGON FOR INJ 1 MG VIAL SQ PRN (22:48)
[2023-02-09] MEDS ORDERED: DEXTROSE 50% 50 ML SYRINGE IV PRN (22:48)
[2023-02-09] MEDS ORDERED: GLUCOSE 40% GEL 15 GM TUBE PO PRN (22:48)
[2023-02-09] MEDS ORDERED: CARBOHYDRATES FOR HYPOGLYCEMIA PO PRN (22:48)
[2023-02-09] MEDS ORDERED: ACETAMINOPHEN 325 MG TAB PO PRN (22:48)
[2023-02-09] MEDS ORDERED: ONDANSETRON INJ 2 MG/ML 2 ML VIAL IV PRN (22:48)
[2023-02-09] MEDS ORDERED: GLUCOSE 10 TAB/TUBE PO PRN (22:48)
[2023-02-09] MEDS: Patient's HEIGHT &/or WEIGHT Needed SCH (23:24)
[2023-02-10] MEDS: Patient's HEIGHT &/or WEIGHT Needed SCH ×3 (00:11→01:05)
[2023-02-10] MEDS: INSULIN ASPART PER UNIT CHARGE SC SCH ×5 (00:12→20:05)
[2023-02-10] MEDS: CEFEPIME 2,000 MG in SYRINGE 0 ML IV SCH ×2 (06:10→18:35)
[2023-02-10 06:36] LABS: Basophils # (auto) 0.05 K/uL (0-0.2); Basophils % (auto) 0.7 %; Eosinophils # (auto) 0.12 K/uL (0-0.50); Eosinophils % (auto) 1.6 %; Hemoglobin 12.3 g/dl (14.0-18.0); Immature Granulocytes # (auto) 0.06 K/uL (0.01-0.20); Immature Granulocytes % (auto) 0.8 %; Lymphocytes # (auto) 1.27 K/uL (1.2-3.4); Lymphocytes % (auto) 17.1 %; Mean Corpuscular Hemoglobin 31.3 pg (25.0-34.0); Mean Corpuscular Hgb Conc 35.1 g/dL (32.0-36.0); Mean Corpuscular Volume 89.1 fL (80.0-100.0); Mean Platelet Volume 10.5 fL (9.4-12.4); Monocytes # (auto) 0.66 K/uL (0.11-0.59); Monocytes % (auto) 8.9 %; Neutrophils # (auto) 5.25 K/uL (1.40-6.50); Neutrophils % (auto) 70.9 %; Platelet Count 173 K/uL (130-400); RDW Coefficient of Variation 12.7 % (11.5-14.5); RDW Standard Deviation 41.7 fL (36.4-46.3); Red Blood Count 3.93 M/uL (4.70-6.10); White Blood Count 7.41 K/ul (4.8-10.8)
[2023-02-10 07:04] LABS: Albumin Globulin Ratio 0.9 (0.9-2); BUN Creatinine Ratio 13.5 (10-20); Creatinine Clr Calc Pharmacy 62.9 ml/min; Est GFR (African American) 76.6 ml/min; Est GFR (Non-African American) 66.1 ml/min; Globulin 3.2 gm/dl (2.5-4.0); Magnesium 1.8 mg/dl (1.7-2.4); Total Protein 6.2 gm/dl (6.0-8.3)
--- NOTE | 2023-02-10 07:36 | Electrocardiogram Report ---
Test Reason : Blood Pressure : / mmHG Vent. Rate : 070 BPM Atrial Rate : 082 BPM P-R Int : 000 ms QRS Dur : 178 ms QT Int : 464 ms P-R-T Axes : 000 -56 062 degrees QTc Int : 501 ms Atrial flutter Ventricular-paced rhythm Abnormal ECG When compared with ECG of 03-DEC-2022 22:46, Vent. rate has decreased BY 6 BPM Confirmed by Ori Moore ([id number]) on 02/10/2023 7:35:53 AM Referred By: Iona Morris Confirmed By:Peterson Moore
[2023-02-10 09:35] LABS: Estimated Average Glucose 217 mg/dl; Hemoglobin A1C 9.2 % (4.5-5.6)
[2023-02-10] MEDS: TAMSULOSIN HCL 0.4 MG CAP PO SCH (09:36)
[2023-02-10] MEDS: SERTRALINE HCL 50 MG TABLET PO SCH (09:37)
[2023-02-10] MEDS: MULTIVITAMIN TAB PO SCH (09:37)
[2023-02-10] MEDS: CHOLECALCIFEROL 1,000 UNITS 25 MCG TAB PO SCH (09:37)
[2023-02-10] MEDS: FUROSEMIDE 40 MG/4 ML VIAL IV SCH (10:00)
[2023-02-10] MEDS: AZITHROMYCIN 500 MG in DEXTROSE 5% 250 ML IV SCH (10:03)
[2023-02-10] MEDS ORDERED: Nursing to Pharmacy Communication SCH (10:15)
[2023-02-10] MEDS: LORATADINE 10 MG TAB PO SCH (11:18)
[2023-02-10 15:17] LABS: Appearance Urine Clear (Clear); Bilirubin Urine Negative (Negative); Blood Urine Negative (Negative); Color Urine Yellow; Glucose Urine UA Negative (Negative); Ketones Urine Negative (Negative); Leukocyte Esterase Urine Negative (Negative); Nitrite Urine Negative (Negative); Protein Urine Negative (Negative); Specific Gravity Urine 1.006 (1.000-1.030); Urobilinogen Urine Negative (Negative)
--- NOTE | 2023-02-10 18:29 | Hospitalist Progress Note ---
Date of Service February 10, 2023 Assessment & Plan (1) Acute respiratory failure with hypoxia: Plan: A-cute respiratory failure with hypoxia Continue nasal cannula oxygen, titrate to keep pulse ox 92-94% - etiology thought to be 2/2 PNA and/or CHF exacerbation Pneumonia- CXR appearance consistent with PNA, however WBC and procal both normal; patient afebrile since admission. Blood cultures showing no growth to date. Question of possibility of aspiration on admission -- however speech eval today was normal. Community acquired PNA most likely source Admitted on cefepime 2 g IV every 12 hours and azithromycin 500 mg IV daily -- however if patient continues to demonstrate clinical improvement will trial off abx and see if stabilizes on lasix alone Albuterol HFA 2 puffs 4 times daily as needed CHF exacerbation - patient follows with Dr. Reddy at [facility] -- had echo last week and EF was apparently 55% - BNP elevated to 147 on admission; small pleural effusion noted on CXR - Given furosemide 40 mg IV in the ED, and will continue every morning; not on any home lasix CAD/s/p TAVR - Continue apixaban 5 mg p.o. twice daily, metoprolol succinate 25 mg every evening - Follow serial BMP and magnesium levels Elevated trop on admission - denies chest pain - EKG without acute ST segment changes - likley demand supply mismatch Diabetes mellitus- - uncontrolled, A1c at 9.2 - patient's home regimen consistent of Tresiba 30 units daily and Ozempic 0.5mg weekly. Patient's grandfather Tere administers his insulin each day to him, so compliance is not in question - He was never titrated up on his Ozempic dose --> recommend this be done upon discharge. Also will likely increase insulin dose given how deranged A1c is - Hold semaglutide and insulin degludec - Placed on Accu-Cheks with NovoLog SSI Depression- Continue fluoxetine Cerebrovascular disease- CT head with old infarcts noted, with right frontotemporal old MCA distribution infarct with encephalomalacia Left parietal craniotomy with encephalomalacia Dispo: Med tele; PT OT consults placed (2) CHF exacerbation: (3) Pneumonia: (4) Diabetes mellitus with insulin therapy: (5) Arthritis: (6) CAD (coronary artery disease): (7) Dyslipidemia: (8) GERD (gastroesophageal reflux disease): (9) Seizures: (10) H/O aortic valve replacement: Admission and Anticipated Discharge Date Admission Date: February 09, 2023 Subjective Patient states he is feeling improved from admission Review of Systems Review of Systems: All systems reviewed & are unremarkable except as noted in HPI & below Physical Exam Constitutional: WD/WN, vitals as above Eyes: + anicteric sclerae ENMT: external ear and nose normal, oropharynx normal Neck: trachea midline, no thyromegaly Respiratory: normal respiratory effort; no respiratory distress Auscultation: + rhonchi and + wheezes Cardiovascular: RRR, no murmur, no edema Heart Sounds: normal S1 and normal S2 Extremities: + pedal edema Gastrointestinal (Abdomen): normal bowel sounds, soft, nontender, no hepatosplenomegaly Musculoskeletal: Head/Neck/Chest: normocephalic and head atraumatic Skin: no rashes, warm and dry Neurologic: moves all extremities Psychiatric: A+Ox3, euthymic affect Results & Data Results & Data Vital Signs (Past 12 Hours) Vital Signs Temp Pulse Pulse Resp BP Pulse Ox O2 Del Method 02/10/23 16:52 36.9 C 70 30 H 105/63 94 Room Air 02/10/23 15:49 74 02/10/23 07:45 Room Air 02/10/23 11:42 37.0 C 70 24 106/63 91 Room Air 02/10/23 07:46 37.0 C 70 31 H 137/65 90 Room Air 02/10/23 07:13 70 PG Care Time/CCT Total # of Minutes Spent Total Time Spent with Patient: Total time spent is greater than 50% in coordination of care (as documented) at patient's floor/unit and/or counseling patient: Coding [place] [address] SUB INP/OBS CARE 2/35MIN Patient Type Established Diagnoses Acute respiratory failure with hypoxia J96.01 CHF exacerbation I50.9 Heart failure type: unspecified Pneumonia J18.9 Laterality: unspecified laterality Lung location: unspecified part of lung Pneumonia type: due to unspecified organism Diabetes mellitus with insulin therapy E11.9; Z79.4 Arthritis M19.90 CAD (coronary artery disease) I25.10 Dyslipidemia E78.5 GERD (gastroesophageal reflux disease) K21.9 Seizures R56.9 H/O aortic valve replacement Z95.2 (2) CHF exacerbation Heart failure type: unspecified Qualified Code(s): I50.9 - Heart failure, unspecified (3) Pneumonia Laterality: unspecified laterality Lung location: unspecified part of lung Pneumonia type: due to unspecified organism Qualified Code(s): J18.9 - Pneumonia, unspecified organism
[2023-02-10] MEDS ORDERED: ASPIRIN 81 MG ECTAB PO SCH (21:00)
[2023-02-10] MEDS ORDERED: ROSUVASTATIN CALCIUM 20 MG TAB PO SCH (21:00)
[2023-02-10] MEDS ORDERED: METOPROLOL SUCC 25MG EXT REL TAB PO SCH (21:00)
[2023-02-11] MEDS: CEFEPIME 2,000 MG in SYRINGE 0 ML IV SCH (06:10)
[2023-02-11 07:21] LABS: Basophils # (auto) 0.05 K/uL (0-0.2); Basophils % (auto) 0.6 %; Eosinophils # (auto) 0.23 K/uL (0-0.50); Eosinophils % (auto) 2.8 %; Hematocrit (blood only) 33.4 % (42.0-52.0); Hemoglobin 11.8 g/dl (14.0-18.0); Immature Granulocytes # (auto) 0.07 K/uL (0.01-0.20); Immature Granulocytes % (auto) 0.8 %; Lymphocytes # (auto) 1.94 K/uL (1.2-3.4); Lymphocytes % (auto) 23.5 %; Mean Corpuscular Hemoglobin 31.1 pg (25.0-34.0); Mean Corpuscular Hgb Conc 35.3 g/dL (32.0-36.0); Mean Corpuscular Volume 88.1 fL (80.0-100.0); Monocytes # (auto) 0.77 K/uL (0.11-0.59); Monocytes % (auto) 9.3 %; Neutrophils # (auto) 5.19 K/uL (1.40-6.50); Platelet Count 179 K/uL (130-400); RDW Standard Deviation 41.1 fL (36.4-46.3); Red Blood Count 3.79 M/uL (4.70-6.10); White Blood Count 8.25 K/ul (4.8-10.8)
[2023-02-11 07:33] LABS: Albumin Globulin Ratio 0.9 (0.9-2); Albumin Level 2.8 gm/dl (3.4-5.0); BUN Creatinine Ratio 14.8 (10-20); Bilirubin,Total 0.8 mg/dl (0.2-1.0); Calcium 9.1 mg/dl (8.6-10.3); Creatinine Clr Calc Pharmacy 60.7 ml/min; Est GFR (African American) 73.2 ml/min; Est GFR (Non-African American) 63.1 ml/min; Globulin 3.1 gm/dl (2.5-4.0); Magnesium 1.8 mg/dl (1.7-2.4); Potassium 4.1 mmol/L (3.5-5.1); Total Protein 5.9 gm/dl (6.0-8.3)
[2023-02-11] MEDS: INSULIN ASPART PER UNIT CHARGE SC SCH ×2 (08:00→12:30)
[2023-02-11] MEDS: SERTRALINE HCL 50 MG TABLET PO SCH ×2 (08:20→11:07)
[2023-02-11] MEDS: MULTIVITAMIN TAB PO SCH (08:20)
[2023-02-11] MEDS: TAMSULOSIN HCL 0.4 MG CAP PO SCH ×2 (08:20→11:07)
[2023-02-11] MEDS: CHOLECALCIFEROL 1,000 UNITS 25 MCG TAB PO SCH (08:20)
[2023-02-11] MEDS: FUROSEMIDE 40 MG/4 ML VIAL IV SCH (08:21)
[2023-02-11] MEDS: AZITHROMYCIN 500 MG in DEXTROSE 5% 250 ML IV SCH (08:21)
[2023-02-11] MEDS ORDERED: LANTUS PER UNIT CHARGE SQ SCH (09:00)
[2023-02-11] MEDS: LORATADINE 10 MG TAB PO SCH (09:44)
[2023-02-11] MEDS ORDERED: FLUoxetine HCL 20 MG CAP PO SCH (11:15)
[2023-02-11] MEDS ORDERED: APIXABAN 5 MG TABLET PO SCH (21:00)
--- NOTE | 2023-02-11 21:18 | Discharge Summary ---
Date of Service February 11, 2023 Admission HPI Per Admitting Provider The patient is an 82-year-old male with a past medical history including gout, diabetes mellitus on insulin, CKD, hypertension, CAD, CHF, depression, hypertension, hyperlipidemia, cerebrovascular disease with history of CVA, status post left parietal craniotomy, history of AVMs, history of kidney stones, DE in 2010, seizure disorder, sleep apnea status post AVR and status post pacemaker. The patient presents to the emergency department with symptoms as noted above, at the referral of his PCP and with his family, and daughter in attendance for support Admission Exam Per Admitting Provider The patient is awake, alert and oriented 3, well developed and well nourished, normocephalic and atraumatic, lying in bed and in no acute distress. HEENT--PERRL, EOMI, mucous membranes and oropharynx dry. Neck--supple. No JVD. No bruits. Thyroid normal, trachea midline, no adenopathy. Heart--normal S1 and S2. No murmurs, rubs or gallops. Lungs--crackles at the bases bilaterally. No respiratory distress, no accessory muscle use. Abdomen--normal bowel sounds and soft. Nontender. Nondistended, no hernias or masses, no organomegaly. Extremities--2+ bilateral pretibial pitting edema Dermatologic--normal skin turgor, normal color, no abnormal lymph nodes, no rash. Neurologic--cranial nerves II through XII grossly intact. Rheumatologic--normal range of motion. Psychiatric--normal affect. Principal Diagnosis Pneumonia + Diastolic CHF exacerbation Discharge Exam Constitutional WD/WN, vitals as above + obese Eyes + anicteric sclerae ENMT external ear and nose normal, oropharynx normal Neck trachea midline, no thyromegaly Respiratory normal respiratory effort; no respiratory distress and no cough Auscultation: + wheezes (right middle lobe) Cardiovascular RRR, no murmur, no edema Musculoskeletal Head/Neck/Chest: normocephalic and head atraumatic Skin no rashes, warm and dry Neurologic moves all extremities Psychiatric A+Ox3, euthymic affect Discharge Data Allergies Allergy/AdvReac Type Severity Reaction Status Date / Time amoxicillin AdvReac Unknown SICK IN Verified 02/09/23 21:25 STOMACH clavulanic acid AdvReac Unknown SICK IN Verified 02/09/23 21:25 STOMACH clopidogrel AdvReac Unknown SICK IN Verified 02/09/23 21:25 STOMACH Consultations 02/09/23 20:31 ED Decision to Admit Stat Ordered Studies 02/09/23 17:13 CT head/brain wo con Stat Diabetes Follow up Diabetes Follow-up Needed for HgbA1c >9% Hospital Course (1) Acute respiratory failure with hypoxia: Acute respiratory failure with hypoxia - etiology thought to be 2/2 PNA and/or CHF exacerbation Pneumonia- CXR appearance consistent with PNA, however WBC and procal both normal; patient afebrile since admission. Blood cultures showing no growth to date. Question of possibility of aspiration on admission -- however speech eval was normal. Community acquired PNA most likely source Admitted on cefepime 2 g IV every 12 hours and azithromycin 500 mg IV daily (completed 3 day course) Albuterol HFA 2 puffs 4 times daily as needed He was discharged on PO cefdinir 300mg BID to complete a 7 day course, as I do not suspect pseudomonal coverage is necessary. CHF exacerbation - patient follows with Dr. Reddy at [facility] -- had echo last week and EF was apparently 55% - BNP elevated to 147 on admission; small pleural effusion noted on CXR - patient's family had reported weight gain in days leading up to discharge - home lasix dose was 20mg MWF - Given three doses of furosemide 40 mg IV without appreciate bump in renal function, suggestive that higher dose of home lasix may be necessary Fortunately, patient has a pre-arranged follow up with Dr. Reddy's office on 02/12/23 at which time adjustment to his home direutic regimen can be discussed. CAD/s/p TAVR - Continue apixaban 5 mg p.o. twice daily, metoprolol succinate 25 mg every evening - Follow serial BMP and magnesium levels Elevated trop on admission - denies chest pain - EKG without acute ST segment changes - babs demand supply mismatch Diabetes mellitus- - uncontrolled, A1c at 9.2 - patient's home regimen consistent of Tresiba 20 units daily and Ozempic 0.5mg weekly. Patient's granddaughter Tere administers his insulin each day to him, so compliance is not in question - He was placed on ozempic 0.5mg daily many months ago and never titrated up on his dose --> recommend this be done at PCP follow up visit (arranged for 02/15/23) - Given how deranged A1c is -- advised he increase his tresiba dose to 30 units daily Depression- Continue fluoxetine Cerebrovascular disease- CT head with old infarcts noted, with right frontotemporal old MCA distribution infarct with encephalomalacia Left parietal craniotomy with encephalomalacia He was sent home with home health and PT (2) CHF exacerbation: (3) Pneumonia: (4) Diabetes mellitus with insulin therapy: (5) Arthritis: (6) CAD (coronary artery disease): (7) Dyslipidemia: (8) GERD (gastroesophageal reflux disease): (9) Seizures: (10) H/O aortic valve replacement: Total Time Total Time Spent Total Time Spent (In Minutes): 38 Total Time Includes: Examination of the Patient, Discharge Planning and Medication Reconciliation Discharge Plan Discharge Items Patient Disposition: Home - Self-Care Reason For Visit: NSTEMI, PNEUMONIA Discharge Diagnosis: Pneumonia, acute diastolic congestive heart failure Activity: Resume your previous activity Non-emergency contact: Primary Care Provider and Embryology Professor Call non-emergency contact if: you have any medication questions and your symptoms worsen Follow-up/Referrals: Iona Morris CRNP [Primary Care Provider] - Diet: Carb Consistent or DM2 Addtl Attending Provider Instructions: You were hospitalized at [facility] for shortness of breath, generalized weakness, and lower extremity swelling. On admission, a chest xray showed findings concerning for a pneumonia. Additionally, it appears as though some fluid backed up from the heart into the lungs. You were treated with IV antibiotics as well as diuretics (ie water pills) to help remove the the fluid from the lungs. You clinically improved while under our care. You were evaluated by physical therapy prior to your discharge and they recommended ongoing home health with physical therapy services. These services were arranged prior to your discharge. Please continue to take the following antibiotic to complete treatment of your suspected pneumonia: Cefdinir 300mg, twice daily for 4 days. A script was sent to your pharmacy. As for your water pill --> please take lasix 20mg tomorrow morning. Fortunately you have an appointment with your accounting machine mechanic on Sunday02/12/23 -- they can provide you additional directions on diuretic dosing moving forward. While you were in the hospital, your blood sugar was elevated. Please increase your Tresiba insulin dose form 20 units daily to 30 units daily moving forward. You also have a follow up visit scheduled with you PCP this coming week, at which time you should review your diabetic medication regimen. Pending Studies at Discharge: No Stand-Alone Forms: [facility], Smoking Cessation Medications and DC Order Prescriptions: New cefdinir 300 mg Capsule 300 mg PO BID 4 Days Qty: 8 0RF Continued (DME) Contour Test Strips Strip See Rx Instructions .ROUTE .MEDSUPPLY Qty: 300 0RF Rx Instructions: test 3 x daily rosuvastatin [Crestor] 20 mg Tablet 20 mg PO QPM cholecalciferol (vitamin D3) [Vitamin D3] 1,000 unit Tablet 1,000 unit PO QAM fluoxetine 40 mg capsule 40 mg PO QAM Eliquis 5 mg tablet 5 mg PO BID furosemide 20 mg tablet 20 mg PO [id number] Rx Instructions: TAKE THIS MED EVERY SUN/WED/SUN IN THE AM metoprolol succinate 25 mg tablet extended release 24 hr 25 mg PO QPM multivitamin Tablet 1 tab PO QAM Ozempic 0.25 mg or 0.5 mg (2 mg/3 mL) Pen Injector 0.5 mg SUBCUT WK Rx Instructions: TAKE THIS MED EVERY SUNDAY Changed insulin degludec [Tresiba FlexTouch U-100] 100 unit/mL (3 mL) insulin pen 30 unit SUBCUT DAILY 30 Days Qty: 0 0RF Rx Instructions: TAKE THIS MED DAILY AT 6PM Discharge Orders: Discharge Order (Routine); Ordered 02/11/23 Ordered By: Fernanda Hawkins/Other Patient Handouts: Managing Type 2 Diabetes Admission Data Admit Date/Time: 02/09/23 21:27 Attending Provider: Fernanda Dyson Admit Provider: Lincoln Castro Primary Care Provider: Iona Morris Other Providers: Lincoln Castro Other Interventions: Discharge Summary Assessment (RN) Last Done: 02/11/23 15:34 Coding Level of Care Code 44005 INP/OBS DISCH >30 MIN Diagnoses Acute respiratory failure with hypoxia J96.01 CHF exacerbation I50.9 Heart failure type: unspecified Pneumonia J18.9 Laterality: unspecified laterality Lung location: unspecified part of lung Pneumonia type: due to unspecified organism Diabetes mellitus with insulin therapy E11.9; Z79.4 Arthritis M19.90 CAD (coronary artery disease) I25.10 Dyslipidemia E78.5 GERD (gastroesophageal reflux disease) K21.9 Seizures R56.9 H/O aortic valve replacement Z95.2
[2023-02-12] MEDS ORDERED: FUROSEMIDE 40 MG TAB PO SCH (09:00)
[2023-02-12] MEDS ORDERED: CEFDINIR 300 MG CAP PO SCH (09:00)
[2023-02-12] MEDS ORDERED: AZITHROMYCIN 250 MG TAB PO SCH (09:00)
== END 2023-02-11 16:20 | disposition home or self-care (01) | DRG 291 ==
LOC: ED 17:08 → 2S 21:27 → SUATTDRO 21:27 → 2S 22:38
DX: I50.30 Unspecified diastolic (congestive) heart failure; E11.9 Type 2 diabetes mellitus without complications; M10.9 Gout, unspecified; F32.A Depression, unspecified; J18.9 Pneumonia, unspecified organism; G40.909 Epilepsy, unspecified, not intractable, without status epilepticus; I25.2 Old myocardial infarction; Z88.0 Allergy status to penicillin; Z88.1 Allergy status to other antibiotic agents; Z95.0 Presence of cardiac pacemaker; Z86.73 Personal history of transient ischemic attack (TIA), and cerebral infarction without residual deficits; I25.10 Atherosclerotic heart disease of native coronary artery without angina pectoris; Z79.01 Long term (current) use of anticoagulants; Z95.5 Presence of coronary angioplasty implant and graft; Z79.899 Other long term (current) drug therapy; I11.0 Hypertensive heart disease with heart failure; Z82.49 Family history of ischemic heart disease and other diseases of the circulatory system; Z79.82 Long term (current) use of aspirin; Z88.8 Allergy status to other drugs, medicaments and biological substances; Z95.2 Presence of prosthetic heart valve; Z85.828 Personal history of other malignant neoplasm of skin; J96.01 Acute respiratory failure with hypoxia; Z79.4 Long term (current) use of insulin